=== PATIENT | female | born 1980 | race American Indian/Alaskan Native ===

== ENCOUNTER → 2023-03-27 09:36 | Outpatient (CLI) | payer OTHER, MEDICAID, SELFPAY | LOC: RESP 09:37 | PROVIDERS: PCP Family Medicine; Referring Provider Family Medicine; Visit Provider Family Medicine | DX: R06.02 Shortness of breath (principal); J44.9 Chronic obstructive pulmonary disease, unspecified; J45.901 Unspecified asthma with (acute) exacerbation; R00.2 Palpitations; F17.210 Nicotine dependence, cigarettes, uncomplicated | CPT/HCPCS: 94060; 94726; 94729 ==

== ENCOUNTER → 2023-04-19 11:57 | Outpatient (CLI) | payer OTHER, MEDICAID, SELFPAY | LOC: CAR 11:58 | PROVIDERS: PCP Family Medicine; Referring Provider Family Medicine; Visit Provider Family Medicine | DX: R00.2 Palpitations (principal); R00.1 Bradycardia, unspecified; R00.0 Tachycardia, unspecified; I63.9 Cerebral infarction, unspecified; R07.9 Chest pain, unspecified; I48.91 Unspecified atrial fibrillation; I48.92 Unspecified atrial flutter; R55 Syncope and collapse | CPT/HCPCS: 93242 ==

== ENCOUNTER → 2023-05-03 10:14 | Outpatient (CLI) | payer OTHER, MEDICAID, SELFPAY ==
--- NOTE | 2023-05-03 10:15 | DI.ECHO.S_ITS ---
[facility] +---------+ : : [address] : : : : [id number] : : : : Phone: [phone]+ Echocardiogram Report + + :Name: LEONARDO BERGERON Study Date: 05/03/2023 Height: 67 in : :[facility] ReadingLocation: Weight: 208 lb : : Gender: Female BSA: 2.1 m2 : :: 1980 Age: 42 yrs BP: 126/58 mmHg: :Reason For Study: PALPITATIONS : :Ordering Physician: FE, : :RUMA Fowler Performed By: Travis Orozco : :Referring: RUMA MIRAMONTES : + + Interpretation Summary 1) Normal left ventricular thickness and size with low normal systolic function (EF 50-55%). 2) Normal right ventricular size and function. 3) No significant valvular abnormalities. 4) No prior Echo available for comparison. Procedure: A two-dimensional transthoracic echocardiogram with color flow and Doppler was performed. The study quality was technically adequate. There is no prior echocardiogram noted for this patient. The patient was in normal sinus rhythm during the exam. The heart rate ranged between 68-85 bpm during the study. Left Ventricle: The left ventricle is normal in size. Left ventricular wall thickness is at the upper limits of normal. The ejection fraction is estimated to be 50-55%. There are no focal wall motion abnormalities. Diastolic parameters suggest a relaxation abnormality of the left ventricle, consistent with probable normal filling pressures. Right Ventricle: The right ventricle is normal in size and function. Atria: The left atrial size is normal. Right atrial size is normal. The interatrial septum grossly appears intact with no obvious evidence for an atrial septal defect. Mitral Valve: The mitral valve is normal in structure and function. There is no mitral valve stenosis. There is trace mitral regurgitation. Aortic Valve: The aortic valve is trileaflet. There is no aortic valve stenosis. No aortic regurgitation is present. Tricuspid Valve: The tricuspid valve is normal in structure and function. There is no tricuspid stenosis. No tricuspid regurgitation. Pulmonic Valve: The pulmonic valve is not well visualized. There is no pulmonic valvular stenosis. There is a trace or physiologic amount of pulmonic regurgitation. Great Vessels: The aortic root is normal size. The dimensions of the ascending aorta are normal. The IVC is of normal diameter and collapses greater than 50% with a sniff. This suggests a low right atrial pressure of 3 mm Hg. Pericardium/ Pleura There is no pericardial effusion. There is no pleural effusion. MMode/2D Measurements & Calculations LVIDd: 5.1 cm LVOT diam: 2.2 cm LVIDs: 4.0 cm Ao root diam: 3.1 cm FS: 20.0 % asc Aorta Diam: 3.2 cm IVSd: 1.1 cm Ao Arch Diam (Prox Trans): 2.5 cm LVPWd: 1.1 cm LV sepulveda. diameter/BSA (cm/m^2): 2.5 LV sys. diameter/BSA (cm/m^2): 2.0 LA A2 area: 21.7 cm2 RA long axis: 4.0 cm LA A4 area: 18.3 cm2 RA area: 14.3 cm2 LA length (vol): 5.1 cm RA vol: 43.6 ml LA vol: 66.4 ml RA : 21.2 ml/m2 LA vol index: 32.3 ml/m2 IVC diam: 1.7 cm RVD1 (basal): 3.9 cm RVD2 (mid): 3.5 cm TAPSE: 1.7 cm Doppler Measurements & Calculations Ao V2 max: 125.7 cm/sec LVOT Max Tera: 97.4 cm/sec Ao V2 mean: 93.8 cm/sec LV V1 max P.8 mmHg Ao max P.3 mmHg LV V1 VTI: 19.2 cm Ao mean P.8 mmHg MAEGAN(I,D): 3.1 cm2 Ao V2 VTI: 24.6 cm MAEGAN(V,D): 3.0 cm2 sev ratio: 0.78 MAEGAN indexed to BSA (cm^2/m^2): 1.5 MV E max tera: 71.3 cm/sec PA V2 max: 103.4 cm/sec MV A max tera: 100.1 cm/sec PA V2 mean: 78.4 cm/sec MV E/A: 0.71 PA mean P.7 mmHg Med Peak E' Tera: 5.3 cm/sec PA pr(Accel): 20.8 mmHg E/E' med: 13.3 Lat Peak E' Tera: 4.2 cm/sec E/E' lat: 17.1 E/e' average: 15.2 MV dec time: 0.28 sec SVLVOT): 75.4 ml Reading Physician:04:15 PM
== END ==
LOC: ECHO 10:14
PROVIDERS: PCP Family Medicine; Referring Provider Family Medicine; Visit Provider Family Medicine
DX: R00.2 Palpitations (principal)
CPT/HCPCS: 93306

== ENCOUNTER 2023-06-25 10:36 | Emergency (ER) | payer OTHER, MEDICAID, SELFPAY ==
[2023-06-25 11:04] VITALS: BP 173/105; PULSE 72; RESP 18; TEMP 36.3; O2SAT 98; BMI 32.8
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
[2023-06-25 13:25] VITALS: BP 191/121; PULSE 73; RESP 18; O2SAT 100
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
[2023-06-25] MEDS: CYCLOBENZAPRINE 10 MG TABLET PO (13:39)
[2023-06-25] MEDS: KETOROLAC 30 MG/ML VIAL IM (13:40)
[2023-06-25 15:30] VITALS: BP 181/89; PULSE 88; RESP 16; TEMP 36.8; O2SAT 98
== END 2023-06-25 15:32 | disposition home or self-care (01) ==
PROVIDERS: Emergency Provider Student in an Organized Health Care Education/Training Program; PCP Family Medicine
DX: M54.2 Cervicalgia (principal); M54.50 Low back pain, unspecified; V89.2XXA Person injured in unspecified motor-vehicle accident, traffic, initial encounter
CPT/HCPCS: 72040; 72072; 72100; 96372; 99283; 99284; J1885

== ENCOUNTER → 2023-10-19 10:48 | Outpatient (CLI) | payer OTHER, MEDICAID, SELFPAY ==
--- NOTE | 2023-10-19 10:49 | DI.MRI.S_ITS ---
PROCEDURE: MR CERVICAL SPINE WO CON INDICATIONS: assess for radiulopathy source, shoulder weakness/numbness TECHNIQUE: Noncontrast sagittal T1 spin echo and T2 fast spin echo, sagittal STIR, foraminal oblique sagittal T2 fast spin echo, and axial gradient echo or T2 fast spin echo through the cervical spine. COMPARISON: None. FINDINGS: Image quality: Excellent. Alignment and Curvature: Straightening and mild reversal the normal cervical lordosis. Bone Marrow: Marrow demonstrates normal overall signal. Spinal Cord: Visualized spinal cord has normal size and signal. No cerebellar tonsillar herniation. Paraspinous Soft Tissues: No paravertebral masses. Prevertebral soft tissues are normal in thickness. C2-C3: Normal appearance. C3-C4: Disc desiccation and mild central posterior disc osteophyte complex abutting the ventral cord. Otherwise, the central canal is patent without significant stenosis. No neural foraminal stenosis. C4-C5: Disc desiccation and left paracentral posterior disc osteophyte complex abutting the ventral cord. Mild narrowing of the central canal. Facet and uncovertebral arthropathy with mild left and no right neural foraminal stenosis. C5-C6: Disc desiccation and mild posterior disc osteophyte complex. Mild central canal stenosis. Facet and uncovertebral arthropathy. No significant neural foraminal stenosis. C6-C7: Disc desiccation and minimal posterior disc osteophyte complex. No central canal or neural foraminal stenosis. C7-T1: Normal appearance. IMPRESSION: Mild degenerative changes of the cervical spine as described above, most pronounced at C4-C5. Dictated by: Karlos Oscar M.D. on 10/19/2023 at 18:58 Approved by: Karlos Oscar M.D. on 10/19/2023 at 19:01
--- NOTE | 2023-10-19 10:49 | DI.MRI.S_ITS ---
PROCEDURE: MR SHOULDER RT WO CON INDICATIONS: assess for radiulopathy source, shoulder weakness/numbness TECHNIQUE: Noncontrast oblique coronal T2 fast spin echo with fat saturation, oblique sagittal T1 spin echo and T2 fast spin echo with fat saturation, axial T1 spin echo and T2 fast spin echo with fat saturation through the shoulder. COMPARISON: None. FINDINGS: Image quality: Excellent. Rotator cuff: Mild tendinosis of the supraspinatus and infraspinatus, without tear. The teres minor is unremarkable. The subscapularis is unremarkable. No muscle edema or fatty atrophy. Bones and bursae: No significant degenerative changes of joint. Type 2 acromion. No os acromiale. Trace subacromial/subdeltoid bursitis. Mild subchondral cystic changes in the posterior aspect of the greater tuberosity, reactive. No acute fracture. No focal chondral defect of the glenohumeral articulation. Capsule and soft tissues: Tear of the posterior inferior labrum. The extra-articular biceps tendon is diminutive, but is grossly intact. The intra-articular biceps tendon is diminutive but is intact as well. No significant glenohumeral effusion. Mild subcoracoid bursitis. IMPRESSION: 1. Mild tendinosis of the supraspinatus and infraspinatus, without tear. 2. Tear of the posterior inferior labrum. 3. Mild subcoracoid bursitis. Dictated by: Celine Vance M.D. on 10/19/2023 at 17:24 Approved by: Celine Vance M.D. on 10/19/2023 at 17:32
== END ==
LOC: MRI 10:49
PROVIDERS: PCP Family Medicine; Referring Provider Family Medicine; Visit Provider Family Medicine
DX: R20.2 Paresthesia of skin (principal); R29.898 Other symptoms and signs involving the musculoskeletal system; S43.491A Other sprain of right shoulder joint, initial encounter; M75.51 Bursitis of right shoulder
CPT/HCPCS: 72141; 73221

== ENCOUNTER → 2024-09-08 10:40 | Outpatient (CLI) | payer OTHER, SELFPAY ==
--- NOTE | 2024-09-08 10:42 | DI.MRI.S_ITS ---
PROCEDURE: MR HEAD/BRAIN WO/W CON INDICATIONS: increasing frequency migraines + episdoes of unilateral weak TECHNIQUE: Noncontrast axial T1 spin echo, axial T2 fast spin echo, sagittal and axial FLAIR, coronal T2 fast spin echo, axial gradient echo, axial diffusion and ADC through the brain. After the administration of contrast, axial and coronal and sagittal 3D VIBE or T1 spin echo with fat saturation through the brain. COMPARISON: None. FINDINGS: Image quality: Excellent. CSF Spaces: Basal cisterns are patent. No extra-axial fluid collections. Ventricles are normal in size and shape. Brain: No midline shift. No intracranial bleeds or masses. No abnormal intracranial enhancement. There is a rounded 4 mm focus of elevated FLAIR signal within the subcortical white matter of the left inferior parietal lobe. The brainstem appears normal. Diffusion-weighted images demonstrate no acute infarct. No chronic ischemic insults. Normal intravascular flow voids are present. Skull and face: Calvarial marrow is normal in signal. Orbits appear normal. Sinuses: Sinuses and mastoids appear clear. IMPRESSION: 1. Small nonspecific focus of FLAIR signal elevation within the left parietal lobe. Findings could represent a migraine, early small vessel ischemic disease, diabetes mellitus, vasculitides, or demyelinating disorders such as multiple sclerosis. 2. No acute process. No recent infarct. Dictated by: Milka Hogan M.D. on 09/08/2024 at 11:55 Approved by: Milka Hogan M.D. on 09/08/2024 at 11:56
== END ==
PROVIDERS: PCP Family Medicine; Referring Provider Family Medicine; Visit Provider Family Medicine
DX: G43.909 Migraine, unspecified, not intractable, without status migrainosus (principal); R40.20 Unspecified coma; R53.1 Weakness
CPT/HCPCS: 70553; A9579